=== PATIENT | female | born 1965 | race Two or more races ===

== ENCOUNTER 2025-06-14 17:46 | Emergency (ER) | payer MEDICAID, OTHER ==
[~2025-06-14] VITALS: Ht 149.9 cm; Wt 70.0 kg
[~2025-06-14 17:46] MED LIST: HYDR25TA4
[2025-06-14 17:47] VITALS: BP 158/102; PULSE 91; RESP 18; TEMP 98; O2SAT 96
--- NOTE | 2025-06-14 18:10 | ED.PDOC ---
Back pain HPI HPI Comments 59-year-old female presents to the ED chief complaint left shoulder pain x1 month. Patient reports trying to open a window one month ago pulled her shoulder has follow up with her PCP then follow up with ortho and recently had an MRI which she is waiting to go over with her orthopedic surgeon. Currently shows Dhruv no avoid labral tear and biceps tendon tearing. Patient thought she could come in get admitted and have surgery for this and she also came in for pain management. She reports left shoulder pain 8/10 on pain scale positive passive range of motion with moderate discomfort. Denies numbness or weakness or new injury. Chief Complaint: Upper Extremity Time Seen by MD: 18:02 Reviewed Notes: Nurses Notes, Medications, Allergies Allergies: Coded Allergies: NO KNOWN ALLERGIES (Unverified , 02/17/13) Home Meds Active Scripts Methylprednisolone (Medrol Dosepak) 4 Mg Erwin, 4 MG PO UD for 6 Days, #21 TAB UAD Prov:BEBE ZHENG ACCOUNTANT TAX 06/14/25 Cyclobenzaprine HCl (Cyclobenzaprine Hydrochlo) 10 Mg Tab, 10 MG PO HS for 10 Days, #10 TAB Prov:BEBE ZHENG ACCOUNTANT TAX 06/14/25 Reported Medications Hydrochlorothiazide (Hydrochlorothiazide) 25 Mg Tab, BID 02/17/13 Information Source: Patient Mode of Arrival: Ambulatory Past Medical History PAST MEDICAL HISTORY: Gallstones, High Lipids, HTN Surgical History: Tubal Ligation MACHINE [employer]PERATORS History: No Pertinent MACHINE OPERATORS History Family History Family History: No family hx of DM, No family hx of HTN, No family hx of Lung tamara Social History Smoker: Non-Smoker Alcohol: Denies ETOH Use Drugs: Denies Drug Use Lives In: Home All Other Systems: Reviewed and Negative (see hpi) Physical Exam General Appearance: No Apparent Distress, Normal HEENT: Pharynx Normal Neck: Full Range of Motion, Non-Tender Respiratory: Lungs Clear, No Respiratory Distress, Normal Breath Sounds Cardiovascular: No Murmur, Normal Peripheral Pulses, Regular Rate/Rhythm Breast Exam: Deferred Gastrointestinal: Non Tender, Soft Genitalia: Deferred Pelvic: Deferred Rectal: Deferred Extremities: Normal capillary refill, Normal range of motion, No pedal edema Musculoskeletal : Location: Left Extremity Location: Shoulder (Tenderness moderate palpated over anterior shoulder biceps tendon groove positive passive range of motion with moderate discomfort strength sensory motion intact positive radial pulse) Apperance: Normal Neurologic: Alert, No Motor Deficits, Normal Affect, Normal Mood, No Sensory Deficits Cerebellar Function: Normal Reflexes: Normal Skin: Dry, Normal Color, Warm Lymphatic: No Adenopathy Was a procedure done? Was a procedure done?: No Back Pain Differential Dx Differential Diagnosis: Fracture, Musculoskeletal Pain, Strain X-Ray, Labs, Meds, VS Vital Signs Date Time Temp Pulse Resp B/P (MAP) Pulse Ox O2 Delivery O2 Flow Rate FiO2 06/14/25 17:47 98.0 91 18 158/102 96 98.0 Current Medications Medications (Trade) Dose Ordered Sig/Lizzie Route Start Time Stop Time Status Last Admin Ketorolac Tromethamine (Toradol Injection) 60 mg ONCE ONCE IM 06/14/25 18:15 06/14/25 18:16 DC 06/14/25 18:22 Acetaminophen/ Hydrocodone Bitart ([place] 5/325MG Tab) 1 tab ONCE ONCE PO 06/14/25 18:15 06/14/25 18:16 DC 06/14/25 18:22 Dexamethasone Sodium Phosphate (Decadron Injection) 10 mg ONCE ONCE IM 06/14/25 18:15 06/14/25 18:16 DC 06/14/25 18:21 X-Ray, Labs, Meds, VS Comment MRI imaging reviewed advised patient to follow up with her scheduled orthopedic surgeon follow up for further details on the MRI and possible surgery. Patient given [place] 5 mg p.o. Toradol and Decadron IM reports improvement in pain and function patient was also placed in a sling for comfort. Script trial of muscle relaxer and Medrol Dosepak advised to take medication as prescribed side effects were discussed. Advised on ER return precautions patient indicates understanding and agrees with discharge plan of care. Images Reviewed?: Images reviewed and evaluated by me Time of 1ST Reevaluation: 18:02 Reevaluation 1ST: Unchanged Time of 2ND Reevaluation: 18:09 Reevaluation 2ND: Improved Patient Education/Counseling: Diagnosis, Treatment, Prognosis Family Education/Counseling: Diagnosis, Treatment, Prognosis, Need For Follow Up SEPSIS Sepsis Screen Date sepsis recognized/suspect: Jun 14, 2025 Time Sepsis recognized/suspect: 8 Recent Procedure: No On Antibiotic Therapy: No Respiratory Rate >20: No Heart Rate >90: Yes Temp<36 C (96.8 F) or >38.3 C: No SBP <90 or MAP <65 mmHG: No New Acute Mental Status Change: No Is the patient on CPAP, BIPAP,: No Physician Orders Apply Sling (06/14/25 18:10) Vital Signs Date Time Temp Pulse Resp B/P (MAP) Pulse Ox O2 Delivery O2 Flow Rate FiO2 06/14/25 17:47 98.0 91 18 158/102 96 98.0 Medications Medications Dose Ordered Sig/Lizzie Route Start Time Stop Time Status Last Admin Dose Admin Acetaminophen/ Hydrocodone Bitart 1 tab ONCE ONCE PO 06/14/25 18:15 06/14/25 18:16 DC 06/14/25 18:22 Dexamethasone Sodium Phosphate 10 mg ONCE ONCE IM 06/14/25 18:15 06/14/25 18:16 DC 06/14/25 18:21 Ketorolac Tromethamine 60 mg ONCE ONCE IM 06/14/25 18:15 06/14/25 18:16 DC 06/14/25 18:22 Departure 1 Departure Time of Disposition: 18:09 Impression: Primary Impression: Glenoid labrum tear Qualified Codes: S43.432A - Superior glenoid labrum lesion of left shoulder, initial encounter Disposition: HOME / SELF CARE / HOMELESS Condition: Stable e-Prescriptions Methylprednisolone (Medrol Dosepak) 4 Mg Erwin 4 MG PO UD for 6 Days, #21 TAB UAD Prov: BEBE ZHENG 06/14/25 Cyclobenzaprine HCl (Cyclobenzaprine Hydrochlo) 10 Mg Tab 10 MG PO HS for 10 Days, #10 TAB Prov: BEBE ZHENG 06/14/25 Discharged With: Spouse Critical Care Note Critical Care Time?: No Stability Stability form required: BEBE Garber Jun 14, 2025 18:10
[2025-06-14] MEDS ORDERED: CYCL-611 PO (18:18)
[2025-06-14] MEDS ORDERED: METH4PAK PO (18:18)
[2025-06-14] MEDS: KETOROLAC TROMETH 60MG/2ML VIAL IM ONE (18:22)
[2025-06-14] MEDS: HYDROcodone-ACET 5/325MG TAB PO ONE (18:22)
== END 2025-06-14 18:27 | disposition home or self-care (01) ==
LOC: ER 17:46
DX: S43.432A Superior glenoid labrum lesion of left shoulder, initial encounter (principal); E78.5 Hyperlipidemia, unspecified; I10 Essential (primary) hypertension; Z98.51 Tubal ligation status; Z79.899 Other long term (current) drug therapy; X58.XXXA Exposure to other specified factors, initial encounter; Y93.89 Activity, other specified; Y92.89 Other specified places as the place of occurrence of the external cause; Y99.8 Other external cause status
CPT/HCPCS: 96372; 99284; J1100; J1885